=== PATIENT | female | born 1945 | race African-American/Black ===

== ENCOUNTER 2020-11-24 12:11 | Inpatient (IN) | payer MEDICARE ==
[2020-11-24] VITALS (34 sets, daily range): BP systolic 87–204; BP diastolic 54–110
[~2020-11-24] VITALS: Ht 165.1 cm; Wt 58.5 kg
[2020-11-24 13:25] LABS: BASOPHILS % (AUTO) 0.2 % (0.0-2.0); LYMPHOCYTES # (AUTO) 0.6 /CMM (0.8-4.8); LYMPHOCYTES % (AUTO) 6.2 % (20.0-44.0); MEAN CORPUSCULAR HGB CONC 33 g/dl (31.0-36.0); MEAN CORPUSCULAR VOLUME 88 fL (82-100); MONOCYTES # (AUTO) 0.6 /CMM (0.1-1.30); MONOCYTES % (AUTO) 6.7 % (2.0-12.0); NEUTROPHILS # (AUTO) 8.1 /CMM (1.8-8.9); NEUTROPHILS % (AUTO) 86.9 % (43.0-81.0); PLATELET COUNT (AUTO) 278 /CMM (150-450); WHITE BLOOD COUNT (AUTO) 9.3 K/uL (4.3-11.0)
[2020-11-24 13:27] LABS: RED BLOOD CELL COUNT(AUTO) 1.58 MIL/uL (4.0-5.2)
[2020-11-24 13:29] LABS: HEMATOCRIT 14 % (33-45); HEMOGLOBIN 4.5 g/dL (11.5-14.8)
[2020-11-24 13:35] LABS: CALCIUM, SERUM 8.5 mg/dL (8.5-10.1); CARBON DIOXIDE 22 mmol/L (21-32); CHLORIDE 105 mmol/L (98-107); CREATININE 2.3 mg/dL (0.6-1.3); GLUCOSE 114 mg/dL (74-106); POTASSIUM 5.6 mmol/L (3.5-5.1); SODIUM SERUM 140 mmol/L (136-145); UREA NITROGEN, BLOOD 53 mg/dL (7-18)
[2020-11-24] MEDS ORDERED: UNK BP MEDICATION PO (13:51)
[2020-11-24] MEDS ORDERED: LACT1CAP71 PO (13:51)
[2020-11-24] MEDS ORDERED: FERR325T23 PO (13:51)
[2020-11-24] MEDS ORDERED: ASPI-992 PO (13:51)
[2020-11-24 14:15] LABS: BAND % (MANUAL) 12 % (0.0-5.0); LYMPHOCYTES % (MANUAL) 2 % (16-48); METAMYELOCYTES % 4 % (0-0); MYELOCYTES % 3 % (0-0); NEUTROPHILS % (MANUAL) 79 (42-76)
[2020-11-24] MEDS ORDERED: Z GUARD REMEDY 2 OZ OINT TP PRN (14:30)
[2020-11-24] MEDS ORDERED: MAG HYDROX/AL HYDROX/SIMETH 30 ML UDC PO PRN (14:30)
[2020-11-24] MEDS ORDERED: MAGNESIUM HYDROXIDE 30 ML UDC PO PRN (14:30)
[2020-11-24] MEDS ORDERED: ACETAMINOPHEN 325 MG TABLET PO PRN (14:30)
[2020-11-24] MEDS ORDERED: ONDANSETRON HCL/PF 4 MG/2 ML VIAL IVP PRN (14:30)
[2020-11-24] MEDS ORDERED: HYDROCODONE/APAP 5/325MG TABLET PO PRN (14:30)
[2020-11-24] MEDS ORDERED: CLONIDINE HCL 0.1 MG TABLET PO PRN (17:00)
[2020-11-24] MEDS ORDERED: hydrALAZINE HCL IV 20 MG VIAL IV PRN (18:00)
[2020-11-24] MEDS: hydrALAZINE HCL 50 MG TABLET PO SCH (18:15)
[2020-11-24] MEDS: IV NS 0.9% 1,000 ML IV PRN (18:16)
[2020-11-24 18:38] LABS: MAGNESIUM 2.7 mg/dL (1.8-2.4); PHOSPHORUS 5.3 mg/dL (2.5-4.9)
[2020-11-24 18:53] LABS: THYROID STIMULATING HORMONE 1.523 uIU/mL (0.358-3.74)
[2020-11-24] MEDS: NITROGLYCERIN 30 GM TUBE TP SCH (18:54)
[2020-11-24] MEDS ORDERED: SODIUM POLYSTYRENE SULFONATE 15 G/60 ML BOTTLE PO ONE (19:00)
[2020-11-25] VITALS (39 sets, daily range): BP systolic 81–141; BP diastolic 51–88
[2020-11-25 02:24] LABS: OCCULT BLOOD STOOL POSITIVE (NEGATIVE)
[2020-11-25 04:18] LABS: BASOPHILS % (AUTO) 0.5 % (0.0-2.0); EOSINOPHILS % (AUTO) 0.1 % (0.0-6.0); HEMATOCRIT 24 % (33-45); LYMPHOCYTES # (AUTO) 0.8 /CMM (0.8-4.8); LYMPHOCYTES % (AUTO) 10.6 % (20.0-44.0); MEAN CORPUSCULAR HGB CONC 34 g/dl (31.0-36.0); MEAN CORPUSCULAR VOLUME 87 fL (82-100); MONOCYTES # (AUTO) 0.9 /CMM (0.1-1.30); MONOCYTES % (AUTO) 11.2 % (2.0-12.0); NEUTROPHILS # (AUTO) 6.2 /CMM (1.8-8.9); NEUTROPHILS % (AUTO) 77.6 % (43.0-81.0); PLATELET COUNT (AUTO) 238 /CMM (150-450); RED BLOOD CELL COUNT(AUTO) 2.72 MIL/uL (4.0-5.2)
[2020-11-25 04:45] LABS: ALANINE AMINOTRANSFERASE 17 U/L (12-78); ALBUMIN 3.1 g/dL (3.4-5.0); ALKALINE PHOSPHATASE 46 U/L (46-116); ASPARTATE AMINOTRANSFERASE 79 U/L (15-37); BILIRUBIN,TOTAL 0.8 mg/dL (0.2-1.0); CALCIUM, SERUM 8.2 mg/dL (8.5-10.1); CARBON DIOXIDE 23 mmol/L (21-32); CHLORIDE 106 mmol/L (98-107); CREATININE 1.8 mg/dL (0.6-1.3); GLUCOSE 99 mg/dL (74-106); MAGNESIUM 2.4 mg/dL (1.8-2.4); PHOSPHORUS 4.7 mg/dL (2.5-4.9); POTASSIUM 3.7 mmol/L (3.5-5.1); SODIUM SERUM 141 mmol/L (136-145); TOTAL PROTEIN, SERUM 5.8 g/dL (6.4-8.2); UREA NITROGEN, BLOOD 42 mg/dL (7-18)
[2020-11-25] MEDS: IV NS 0.9% 1,000 ML IV PRN ×2 (05:01→16:21)
[2020-11-25] MEDS: hydrALAZINE HCL 50 MG TABLET PO SCH ×3 (08:03→16:20)
[2020-11-25] MEDS: PANTOPRAZOLE 40 MG VIAL IV SCH ×2 (08:03→21:18)
[2020-11-25] MEDS: NITROGLYCERIN 30 GM TUBE TP SCH ×2 (08:04→16:21)
[2020-11-25] MEDS: ATORVASTATIN 10 MG TABLET PO SCH (08:34)
[2020-11-25] MEDS: CARVEDILOL 6.25 MG TABLET PO SCH ×2 (08:35→21:17)
[2020-11-25] MEDS ORDERED: FERROUS SULFATE (325 MG) 325 MG/TAB TABLET PO SCH (09:00)
[2020-11-25] MEDS: SOD FERRIC GLUC 125 MG in IV NS 0.9% 100 ML IV SCH (14:28)
[2020-11-26] VITALS (18 sets, daily range): BP systolic 108–132; BP diastolic 55–73
[2020-11-26 05:54] LABS: BASOPHILS # (AUTO) 0.1 /CMM (0.0-0.2); BASOPHILS % (AUTO) 0.9 % (0.0-2.0); EOSINOPHILS % (AUTO) 0.8 % (0.0-6.0); LYMPHOCYTES # (AUTO) 0.5 /CMM (0.8-4.8); LYMPHOCYTES % (AUTO) 6.9 % (20.0-44.0); MEAN CORPUSCULAR HGB CONC 33 g/dl (31.0-36.0); MEAN CORPUSCULAR VOLUME 90 fL (82-100); MONOCYTES # (AUTO) 0.8 /CMM (0.1-1.30); NEUTROPHILS # (AUTO) 5.9 /CMM (1.8-8.9); NEUTROPHILS % (AUTO) 80.4 % (43.0-81.0); PLATELET COUNT (AUTO) 216 /CMM (150-450); RED BLOOD CELL COUNT(AUTO) 2.14 MIL/uL (4.0-5.2); WHITE BLOOD COUNT (AUTO) 7.4 K/uL (4.3-11.0)
[2020-11-26 06:36] LABS: ALANINE AMINOTRANSFERASE 12 U/L (12-78); ALBUMIN 2.4 g/dL (3.4-5.0); ALKALINE PHOSPHATASE 42 U/L (46-116); ASPARTATE AMINOTRANSFERASE 50 U/L (15-37); BILIRUBIN,TOTAL 0.4 mg/dL (0.2-1.0); CALCIUM, SERUM 7.7 mg/dL (8.5-10.1); CARBON DIOXIDE 21 mmol/L (21-32); CHLORIDE 109 mmol/L (98-107); CREATININE 1.4 mg/dL (0.6-1.3); GLUCOSE 88 mg/dL (74-106); MAGNESIUM 2.2 mg/dL (1.8-2.4); PHOSPHORUS 3.6 mg/dL (2.5-4.9); POTASSIUM 3.2 mmol/L (3.5-5.1); SODIUM SERUM 139 mmol/L (136-145); TOTAL PROTEIN, SERUM 4.8 g/dL (6.4-8.2); UREA NITROGEN, BLOOD 27 mg/dL (7-18)
[2020-11-26 07:05] LABS: HEMOGLOBIN 6.3 g/dL (11.5-14.8)
[2020-11-26 07:06] LABS: HEMATOCRIT 19 % (33-45)
[2020-11-26 08:59] LABS: EOSINOPHILS % (MANUAL) 1 % (0-4); LYMPHOCYTES % (MANUAL) 8 % (16-48); MONOCYTES % (MANUAL) 9 % (0-11.0); NEUTROPHILS % (MANUAL) 82 (42-76)
[2020-11-26] MEDS: IV NS 0.9% 1,000 ML IV PRN (09:11)
[2020-11-26] MEDS: hydrALAZINE HCL 50 MG TABLET PO SCH ×3 (09:12→17:23)
[2020-11-26] MEDS: PANTOPRAZOLE 40 MG VIAL IV SCH ×2 (09:12→21:28)
[2020-11-26] MEDS: CARVEDILOL 6.25 MG TABLET PO SCH ×2 (09:13→21:29)
[2020-11-26] MEDS: NITROGLYCERIN 30 GM TUBE TP SCH ×2 (09:14→17:24)
[2020-11-26] MEDS: POTASSIUM CHLORIDE 20 MEQ TAB.PRT.SR PO SCH ×3 (09:16→11:00)
[2020-11-26] MEDS: ATORVASTATIN 10 MG TABLET PO SCH (09:16)
[2020-11-26] MEDS ORDERED: PEG 3350/NA SULF,BICARB,CL/KCL 4,000 ML BOTTLE PO ONE (11:00)
[2020-11-26] MEDS ORDERED: POTASSIUM CHLORIDE 20 MEQ TAB.PRT.SR PO ONE (12:09)
[2020-11-26] MEDS ORDERED: ANESTHESIA TRAY IN PYXIS 1 EA TRAY MC ONE (15:06)
[2020-11-26] MEDS: SOD FERRIC GLUC 125 MG in IV NS 0.9% 100 ML IV SCH (15:09)
[2020-11-27] VITALS (15 sets, daily range): BP systolic 108–155; BP diastolic 57–80
[2020-11-27 03:47] LABS: BASOPHILS % (AUTO) 0.1 % (0.0-2.0); EOSINOPHILS % (AUTO) 0.9 % (0.0-6.0); HEMATOCRIT 22 % (33-45); HEMOGLOBIN 7.2 g/dL (11.5-14.8); LYMPHOCYTES # (AUTO) 0.4 /CMM (0.8-4.8); LYMPHOCYTES % (AUTO) 5.1 % (20.0-44.0); MEAN CORPUSCULAR HGB CONC 33 g/dl (31.0-36.0); MEAN CORPUSCULAR VOLUME 91 fL (82-100); MONOCYTES # (AUTO) 0.9 /CMM (0.1-1.30); MONOCYTES % (AUTO) 11.6 % (2.0-12.0); NEUTROPHILS # (AUTO) 6.2 /CMM (1.8-8.9); NEUTROPHILS % (AUTO) 82.3 % (43.0-81.0); PLATELET COUNT (AUTO) 196 /CMM (150-450); RED BLOOD CELL COUNT(AUTO) 2.37 MIL/uL (4.0-5.2); WHITE BLOOD COUNT (AUTO) 7.6 K/uL (4.3-11.0)
[2020-11-27 04:11] LABS: ALBUMIN 2.4 g/dL (3.4-5.0); BILIRUBIN,TOTAL 0.5 mg/dL (0.2-1.0); CREATININE 1.2 mg/dL (0.6-1.3); MAGNESIUM 2.1 mg/dL (1.8-2.4); POTASSIUM 3.9 mmol/L (3.5-5.1); TOTAL PROTEIN, SERUM 4.8 g/dL (6.4-8.2)
[2020-11-27] MEDS: ATORVASTATIN 10 MG TABLET PO SCH (08:32)
[2020-11-27] MEDS: hydrALAZINE HCL 50 MG TABLET PO SCH ×3 (08:33→16:36)
[2020-11-27] MEDS: PANTOPRAZOLE 40 MG VIAL IV SCH (08:34)
[2020-11-27] MEDS: CARVEDILOL 6.25 MG TABLET PO SCH ×2 (08:34→21:19)
[2020-11-27] MEDS: NITROGLYCERIN 30 GM TUBE TP SCH ×2 (08:43→16:36)
[2020-11-27] MEDS: SOD FERRIC GLUC 125 MG in IV NS 0.9% 100 ML IV SCH (14:19)
[2020-11-27] MEDS: ENSURE CLEAR 237 ML LIQUID (MIX BERRY) PO SCH (17:17)
[2020-11-27] MEDS: PANTOPRAZOLE 40 MG TABLET.DR PO SCH (21:19)
[2020-11-28] VITALS: BP 138/90
[2020-11-28 06:37] LABS: BASOPHILS % (AUTO) 0.6 % (0.0-2.0); EOSINOPHILS % (AUTO) 1.9 % (0.0-6.0); HEMATOCRIT 26 % (33-45); HEMOGLOBIN 8.6 g/dL (11.5-14.8); LYMPHOCYTES # (AUTO) 0.4 /CMM (0.8-4.8); LYMPHOCYTES % (AUTO) 5.1 % (20.0-44.0); MEAN CORPUSCULAR HGB CONC 33 g/dl (31.0-36.0); MEAN CORPUSCULAR VOLUME 90 fL (82-100); MONOCYTES # (AUTO) 0.9 /CMM (0.1-1.30); MONOCYTES % (AUTO) 10.9 % (2.0-12.0); NEUTROPHILS # (AUTO) 6.5 /CMM (1.8-8.9); NEUTROPHILS % (AUTO) 81.5 % (43.0-81.0); PLATELET COUNT (AUTO) 276 /CMM (150-450); RED BLOOD CELL COUNT(AUTO) 2.86 MIL/uL (4.0-5.2); WHITE BLOOD COUNT (AUTO) 7.9 K/uL (4.3-11.0)
[2020-11-28 06:48] LABS: CALCIUM, SERUM 8.2 mg/dL (8.5-10.1); CREATININE 1.1 mg/dL (0.6-1.3); POTASSIUM 3.8 mmol/L (3.5-5.1)
[2020-11-28] MEDS: hydrALAZINE HCL 50 MG TABLET PO SCH ×3 (08:49→17:46)
[2020-11-28] MEDS: ATORVASTATIN 10 MG TABLET PO SCH (08:50)
[2020-11-28] MEDS: NITROGLYCERIN 30 GM TUBE TP SCH ×2 (08:50→17:49)
[2020-11-28] MEDS: CARVEDILOL 6.25 MG TABLET PO SCH ×2 (08:50→21:24)
[2020-11-28] MEDS: PANTOPRAZOLE 40 MG TABLET.DR PO SCH ×2 (08:50→21:23)
[2020-11-28] MEDS: ENSURE CLEAR 237 ML LIQUID (MIX BERRY) PO SCH ×3 (09:00→17:00)
[2020-11-28] MEDS: SOD FERRIC GLUC 125 MG in IV NS 0.9% 100 ML IV SCH (15:04)
[2020-11-28 20:00] VITALS: BP 157/82
[2020-11-29] VITALS: BP 101/58
[2020-11-29 04:00] VITALS: BP 139/7
[2020-11-29 06:23] LABS: BASOPHILS % (AUTO) 0.5 % (0.0-2.0); EOSINOPHILS % (AUTO) 2.4 % (0.0-6.0); HEMATOCRIT 27 % (33-45); HEMOGLOBIN 8.7 g/dL (11.5-14.8); LYMPHOCYTES # (AUTO) 0.3 /CMM (0.8-4.8); LYMPHOCYTES % (AUTO) 3.5 % (20.0-44.0); MEAN CORPUSCULAR HGB CONC 33 g/dl (31.0-36.0); MEAN CORPUSCULAR VOLUME 92 fL (82-100); MONOCYTES # (AUTO) 0.8 /CMM (0.1-1.30); NEUTROPHILS # (AUTO) 6.2 /CMM (1.8-8.9); NEUTROPHILS % (AUTO) 82.6 % (43.0-81.0); PLATELET COUNT (AUTO) 282 /CMM (150-450); RED BLOOD CELL COUNT(AUTO) 2.92 MIL/uL (4.0-5.2); WHITE BLOOD COUNT (AUTO) 7.5 K/uL (4.3-11.0)
[2020-11-29 06:44] LABS: CALCIUM, SERUM 8.1 mg/dL (8.5-10.1); CREATININE 1.2 mg/dL (0.6-1.3); MAGNESIUM 1.7 mg/dL (1.8-2.4); PHOSPHORUS 3.7 mg/dL (2.5-4.9); POTASSIUM 3.9 mmol/L (3.5-5.1)
[2020-11-29] MEDS: ENSURE CLEAR 237 ML LIQUID (MIX BERRY) PO SCH ×3 (09:00→17:26)
[2020-11-29] MEDS: hydrALAZINE HCL 50 MG TABLET PO SCH ×3 (09:03→17:25)
[2020-11-29] MEDS: ATORVASTATIN 10 MG TABLET PO SCH (09:03)
[2020-11-29] MEDS: PANTOPRAZOLE 40 MG TABLET.DR PO SCH ×2 (09:03→21:11)
[2020-11-29] MEDS: NITROGLYCERIN 30 GM TUBE TP SCH ×2 (09:04→17:26)
[2020-11-29] MEDS: CARVEDILOL 6.25 MG TABLET PO SCH ×2 (09:04→21:10)
[2020-11-29] MEDS: Magnesium 1GM/D5W 100ML PREMIX 100 ML IV SCH ×2 (09:55→11:04)
[2020-11-29] MEDS ORDERED: Magnesium 1GM/D5W 100ML PREMIX 100 ML IV SCH (11:00)
[2020-11-29] MEDS: SOD FERRIC GLUC 125 MG in IV NS 0.9% 100 ML IV SCH (14:34)
[2020-11-29 20:00] VITALS: BP 113/72
[2020-11-30] VITALS: BP 128/73
[2020-11-30 04:00] VITALS: BP 128/69
[2020-11-30] MEDS ORDERED: IV NS 0.9% 1,000 ML ONE (06:13)
[2020-11-30] MEDS ORDERED: IODIXANOL 150 ML IV ONE (06:14)
[2020-11-30] MEDS ORDERED: LIDOCAINE 2% 50 ML MDV IJ ONE (06:14)
[2020-11-30] MEDS ORDERED: NITROGLYCERIN IN 5 % DEXTROSE 0 ML IV ONE (06:14)
[2020-11-30 06:33] LABS: BASOPHILS % (AUTO) 0.6 % (0.0-2.0); EOSINOPHILS % (AUTO) 3.3 % (0.0-6.0); HEMATOCRIT 24 % (33-45); HEMOGLOBIN 8.1 g/dL (11.5-14.8); LYMPHOCYTES # (AUTO) 0.2 /CMM (0.8-4.8); LYMPHOCYTES % (AUTO) 3.1 % (20.0-44.0); MEAN CORPUSCULAR HGB CONC 33 g/dl (31.0-36.0); MEAN CORPUSCULAR VOLUME 91 fL (82-100); MONOCYTES # (AUTO) 0.8 /CMM (0.1-1.30); MONOCYTES % (AUTO) 11.8 % (2.0-12.0); NEUTROPHILS # (AUTO) 5.7 /CMM (1.8-8.9); NEUTROPHILS % (AUTO) 81.2 % (43.0-81.0); PLATELET COUNT (AUTO) 265 /CMM (150-450); RED BLOOD CELL COUNT(AUTO) 2.69 MIL/uL (4.0-5.2)
[2020-11-30 06:55] LABS: CALCIUM, SERUM 8.2 mg/dL (8.5-10.1); CREATININE 1.2 mg/dL (0.6-1.3); POTASSIUM 3.9 mmol/L (3.5-5.1)
[2020-11-30 08:00] VITALS: BP 151/64
[2020-11-30] MEDS ORDERED: PANT40TA2 PO (08:46)
[2020-11-30] MEDS ORDERED: ISOS20TA8 PO (08:46)
[2020-11-30] MEDS ORDERED: ATOR10TA PO (08:46)
[2020-11-30] MEDS ORDERED: CARV6.252 PO (08:46)
[2020-11-30] MEDS: ATORVASTATIN 10 MG TABLET PO SCH (08:59)
[2020-11-30] MEDS: PANTOPRAZOLE 40 MG TABLET.DR PO SCH (08:59)
[2020-11-30] MEDS: hydrALAZINE HCL 50 MG TABLET PO SCH ×3 (09:00→16:33)
[2020-11-30] MEDS: ISOSORBIDE DINITRATE (20MG) 20 MG TABLET PO SCH ×2 (09:00→16:33)
[2020-11-30] MEDS: CARVEDILOL 6.25 MG TABLET PO SCH (09:01)
[2020-11-30] MEDS: ENSURE CLEAR 237 ML LIQUID (MIX BERRY) PO SCH ×3 (09:03→17:10)
[2020-11-30 12:00] VITALS: BP 100/51
[2020-11-30 16:00] VITALS: BP 120/60
[2020-11-30 16:33] VITALS: BP 120/60
== END 2020-11-30 18:00 | disposition home or self-care (01) | DRG 393 ==
LOC: ER 12:11 → ICU 15:16 → TELE 11-25 16:40
PROVIDERS: ADMIT Internal Medicine; ATTEND Internal Medicine
PROC: 30233N1 Transfusion of Nonautologous Red Blood Cells into Peripheral Vein, Percutaneous Approach (ICD-10-PCS; principal; 2020-11-24)
PROC: 0DBP8ZZ Excision of Rectum, Via Natural or Artificial Opening Endoscopic (ICD-10-PCS; 2020-11-27)
DX: K64.4 Residual hemorrhoidal skin tags (principal); I21.4 Non-ST elevation (NSTEMI) myocardial infarction; N17.0 Acute kidney failure with tubular necrosis; E43 Unspecified severe protein-calorie malnutrition; D62 Acute posthemorrhagic anemia; K62.1 Rectal polyp; K57.90 Diverticulosis of intestine, part unspecified, without perforation or abscess without bleeding; I10 Essential (primary) hypertension; D50.9 Iron deficiency anemia, unspecified; Z20.822 Contact with and (suspected) exposure to COVID-19; Z85.3 Personal history of malignant neoplasm of breast; Z90.11 Acquired absence of right breast and nipple; Z79.82 Long term (current) use of aspirin; Z79.899 Other long term (current) drug therapy; I16.0 Hypertensive urgency; E87.5 Hyperkalemia; E87.6 Hypokalemia; I35.0 Nonrheumatic aortic (valve) stenosis
CPT/HCPCS: 36415; 71045-TC; 80048-TC; 80053-TC; 80061-TC; 82272-TC; 82728-TC; 83540-TC; 83735-TC; 84100-TC; 84439-TC; 84443-TC; 84484-TC; 85025-TC; 85610-TC; 85730-TC; 86850-TC; 87081-TC; 88305-TC; C9113; G0378; J0360; J1644; J2704; J2916; J3475; J3490; J7030; J7050; P9016; Q9967